=== PATIENT | male | born 1990 | race Caucasian/White ===

== ENCOUNTER → 2018-06-06 | Outpatient (REF) | payer OTHER ==
[2018-06-06 16:12] LABS: SEMEN APPEARANCE OPAQUE (OPAQUE)
[2018-06-06 16:13] LABS: SEMEN VISCOSITY LIQUID (LIQUID); SEMEN VOLUME 3.5 ml (4.0-5.0); SPERM ABNORMAL FORMS WBC'S NOTED; WBC CONCENTRATION <=1 M/ml (<=1 M/ml)
[2018-06-06 16:14] LABS: % NORMAL FORMS 5 % (>=4); IMMOTILITY 67 %; NON PROGRESSIVE MOTILITY (c) 6 %; PROGRESSIVE MOTILITY (a) 27 % (>=32); SPERM# 437.4 M/Ejac (>=39); TOTAL FUNCTIONAL 14.6 M/Ejac.; TOTAL MOTILITY 33 % (>=40); TOTAL PROGRESSIVE SPERM 117.9 M/Ejac.
== END ==
LOC: M LAB REF 15:02
DX: N46.8 Other male infertility (principal)

== ENCOUNTER → 2018-12-22 | Outpatient (CLI) | payer OTHER ==
--- NOTE | 2018-12-25 09:04 | REP ---
MR LUMBAR SPINE WITHOUT CONTRAST: HISTORY: Fracture. Decreased signal intensity on T2-weighted images is present in the L5-S1 intervertebral disc. The disc is decreased in height. These findings are consistent with disc degeneration. There is no disc bulge or herniation at the L1-2 through L3-4 levels. The nerves exit the neural foramina without compression. A diffuse disc bulge is present at the L4-5 level. This abuts the thecal sac. The L4 nerves exit the neural foraminal without compression. A diffuse disc bulge and mild-size disc extrusion central and eccentric to the left are present at the L5-S1 level. There is inferior migration of disc material. There is minimal compression of the thecal sac and left S1 nerve as it exits the thecal sac. The L5 nerves exit the neural foramina without compression. The conus medullaris is normal in appearance terminating at the level of the L1-2 intervertebral disc. Normal signal intensity is present in the lumbar vertebral bodies. IMPRESSION: 1. Diffuse disc bulge at the L4-5 level. This abuts the thecal sac. 2. Diffuse disc bulge and mild size disc extrusion at the L5-S1 level with minimal compression of the thecal sac and left S1 as it exits the thecal sac. Electronically Signed by Rolando Davalos MD 12/25/2018 09:05 A
== END ==
LOC: M RAD 13:59
PROVIDERS: ATTEND Physician Assistant
DX: M51.26 Other intervertebral disc displacement, lumbar region (principal)